=== PATIENT | female | born 1955 | race Caucasian/White ===

== ENCOUNTER 2017-11-18 14:52 | Outpatient (CLI) | payer OTHER | END 2017-11-18 14:53 | disposition home or self-care (01) | LOC: CTENTCT 14:52 | PROVIDERS: ATTEND Specialist | DX: J32.9 Chronic sinusitis, unspecified (principal) | CPT/HCPCS: 70486 ==

== ENCOUNTER 2018-03-03 09:10 | Outpatient (CLI) | payer OTHER | END 2018-03-03 09:11 | disposition home or self-care (01) | LOC: BICMAMMO 09:10 | PROVIDERS: ATTEND Internal Medicine Hematology & Oncology | DX: Z12.31 Encounter for screening mammogram for malignant neoplasm of breast (principal); Z85.6 Personal history of leukemia; Z80.3 Family history of malignant neoplasm of breast | CPT/HCPCS: 77063; 77067 ==

== ENCOUNTER 2019-03-18 10:31 | Outpatient (CLI) | payer MEDICARE, OTHER ==
--- NOTE | 2019-03-18 11:02 | BD ---
EXAM: DEXA bone density examination HISTORY: 63-year-old postmenopausal female for screening COMPARISON: 02/28/2017 FINDINGS: L1--bone mineral density 0.929 g/sq cm; T score -0.6 L2--bone mineral density 0.962 g/sq cm; T score -0.6 L3--bone mineral density 0.970 g/sq cm; T score -1.0 L4--bone mineral density 0.811 g/sq cm; T score -2.3 Total L1-L4--bone mineral density 0.914 g/sq cm; T score -1.2 Left femoral neck--bone mineral density0.643; T score -1.9 Total proximal left femur--bone mineral density 0.780; T score -1.3 IMPRESSION: Osteopenia This patient has a 10 year WHO fracture risk of a major osteoporotic fracture of 9.4% and of a hip fracture of 1.3%.
--- NOTE | 2019-03-18 11:38 | MMO ---
Bilateral MAMMO Bilat Screen [facility]. CLINICAL HISTORY: Patient is 63 years old and is seen for screening. VIEWS: The views performed were: . FILMS COMPARED: The present examination has been compared to prior imaging studies performed at [facility] on 01/24/2015, 02/28/2016, 02/28/2017 and 03/03/2018. MAMMOGRAM FINDINGS: The breasts are heterogeneously dense, which could obscure a lesion on mammography. Benign calcifications are noted bilaterally. There are no suspicious masses, suspicious calcifications, or new areas of architectural distortion. IMPRESSION: THERE IS NO MAMMOGRAPHIC EVIDENCE OF MALIGNANCY. A ROUTINE FOLLOW-UP MAMMOGRAM IN 1 YEAR IS RECOMMENDED. THE RESULTS OF THIS EXAM WERE SENT TO THE PATIENT. ACR BI-RADS Category 2 - Benign finding MAMMOGRAPHY NOTE: 1. A negative mammogram report should not delay a biopsy if a dominant of clinically suspicious mass is present. 2. Approximately 10% to 15% of breast cancers are not detected by mammography. 3. Adenosis and dense breasts may obscure an underlying neoplasm. Reported by: NERIS BRIGGS MD Electonically Signed: [id number]
== END 2019-03-18 10:32 | disposition home or self-care (01) ==
LOC: BICMAMMO 10:31
PROVIDERS: ATTEND Internal Medicine Hematology & Oncology
DX: Z12.31 Encounter for screening mammogram for malignant neoplasm of breast (principal); M85.89 Other specified disorders of bone density and structure, multiple sites
CPT/HCPCS: 77063; 77067; 77080

== ENCOUNTER 2020-03-21 10:03 | Outpatient (CLI) | payer MEDICARE ==
--- NOTE | 2020-03-21 10:49 | MMO ---
Bilateral MAMMO Bilat Screen [facility]. CLINICAL HISTORY: Patient is 64 years old and is seen for screening. The patient has the following family history of breast cancer: maternal aunt. The patient has a history of leukemia. VIEWS: The views performed were: bilateral craniocaudal with tomosynthesis and bilateral mediolateral oblique with tomosynthesis. FILMS COMPARED: The present examination has been compared to prior imaging studies performed at [facility] on 02/28/2016, 02/28/2017, 03/03/2018 and 03/18/2019. This study has been interpreted with the assistance of computer-aided detection. MAMMOGRAM FINDINGS: The breasts are heterogeneously dense, which could obscure a lesion on mammography. Benign calcifications are noted bilaterally. There are no suspicious masses, suspicious calcifications, or new areas of architectural distortion. IMPRESSION: THERE IS NO MAMMOGRAPHIC EVIDENCE OF MALIGNANCY. A ROUTINE FOLLOW-UP MAMMOGRAM IN 1 YEAR IS RECOMMENDED. THE RESULTS OF THIS EXAM WERE SENT TO THE PATIENT. ACR BI-RADS Category 2 - Benign finding MAMMOGRAPHY NOTE: 1. A negative mammogram report should not delay a biopsy if a dominant of clinically suspicious mass is present. 2. Approximately 10% to 15% of breast cancers are not detected by mammography. 3. Adenosis and dense breasts may obscure an underlying neoplasm. Reported by: NERIS BRIGGS MD Electonically Signed: [id number]
== END 2020-03-21 10:04 | disposition home or self-care (01) ==
LOC: BICMAMMO 10:03
PROVIDERS: ATTEND Internal Medicine Hematology & Oncology
DX: Z12.31 Encounter for screening mammogram for malignant neoplasm of breast (principal); Z80.3 Family history of malignant neoplasm of breast; Z85.6 Personal history of leukemia
CPT/HCPCS: 77063; 77067

== ENCOUNTER 2021-04-13 | Outpatient (CLI) | payer MEDICARE | END 2021-04-13 09:42 | disposition home or self-care (01) | DX: Z12.31 Encounter for screening mammogram for malignant neoplasm of breast (principal); M85.89 Other specified disorders of bone density and structure, multiple sites; Z80.3 Family history of malignant neoplasm of breast; Z85.6 Personal history of leukemia | CPT/HCPCS: 77063; 77067; 77080 ==

== ENCOUNTER 2022-04-24 11:08 | Outpatient (CLI) | payer MEDICARE | END 2022-04-24 11:09 | disposition home or self-care (01) | LOC: BICMAMMO 11:08 | PROVIDERS: ATTEND Family Medicine | DX: Z12.31 Encounter for screening mammogram for malignant neoplasm of breast (principal); Z85.6 Personal history of leukemia | CPT/HCPCS: 77063; 77067 ==

== ENCOUNTER 2025-06-09 13:55 | Outpatient (CLI) | payer MEDICARE | END 2025-06-09 13:56 | disposition home or self-care (01) | LOC: BICMAMMO 13:55 | PROVIDERS: ATTEND Family Medicine | DX: Z12.31 Encounter for screening mammogram for malignant neoplasm of breast (principal); Z80.3 Family history of malignant neoplasm of breast; Z85.6 Personal history of leukemia | CPT/HCPCS: 77063; 77067 ==